=== PATIENT | male | born 1930 | race Caucasian/White ===

== ENCOUNTER 2018-10-10 07:58 | Inpatient (IN) | payer MEDICARE, OTHER ==
[2018-10-10 08:38] LABS: ADD MAN DIFF? NO
[2018-10-10 08:43] LABS: WHITE BLOOD COUNT 6.1 10^3/ul (4.8-10.8)
[2018-10-10 08:43] LABS: BASOPHILS % 0.7 % (0.0-2.0); EOSINOPHILS # 0.4 10^3/ul (0.0-0.5); EOSINOPHILS % 5.9 % (0.0-7.0); HEMATOCRIT 39.8 % (42.0-52.0); HEMOGLOBIN 13.4 g/dl (14.0-18.0); LYMPHOCYTES # 1.4 10^3/ul (0.8-2.9); LYMPHOCYTES % 22.3 % (15.0-51.0); MEAN CORPUSCULAR HGB CONC 33.7 g/dl (32.0-37.0); MEAN CORPUSCULAR VOLUME 86.1 fl (82.0-101.0); MONOCYTE # 0.5 10^3/ul (0.3-0.9); MONOCYTES % 8.5 % (0.0-11.0); NEUTROPHIL # 3.8 10^3/ul (1.6-7.5); NEUTROPHILS % 62.3 % (39.0-77.0); PLATELET COUNT 158 10^3/UL (140-415); RED BLOOD COUNT 4.62 10^6/ul (4.70-6.10); RED CELL DISTRIBUTION WIDTH 13.1 % (11.5-14.5)
[2018-10-10 09:05] LABS: ADD UMIC YES; INR 1.07; PT RATIO 1.1; UR ASCORBIC ACID NEGATIVE (NEGATIVE); UR BILIRUBIN (Dip) NEGATIVE (NEGATIVE); UR BLOOD (Dip) NEGATIVE (NEGATIVE); UR CLARITY CLEAR (CLEAR); UR COLOR STRAW (YELLOW); UR GLUCOSE (Dip) NEGATIVE (NEGATIVE); UR KETONES (Dip) NEGATIVE (NEGATIVE); UR LEUKOCYTE ESTERASE (Dip) NEGATIVE Leu/ul (NEGATIVE); UR NITRITE (Dip) NEGATIVE (NEGATIVE); UR RBC 2 /HPF (0-5); UR TOTAL PROTEIN (Dip) 2+ mg/dl (NEGATIVE); UR UROBILINOGEN (Dip) NEGATIVE (NEGATIVE); UR WBC 0 /HPF (0-5)
[2018-10-10 09:06] LABS: PARTIAL THROMBOPLASTIN TIME 34.3 Sec (23.0-35.0)
[2018-10-10 09:08] LABS: ANION GAP 9 (5-13); BLOOD UREA NITROGEN 28 mg/dl (7-20); CALCIUM 9.5 mg/dl (8.4-10.2); CARBON DIOXIDE 26 mmol/L (21-31); CHLORIDE 105 mmol/L (97-110); CHOL/HDL RATIO 3.9 RATIO; CHOLESTEROL 188 mg/dl (100-200); CREATINE KINASE 114 IU/L (23-200); CREATININE 1.37 mg/dl (0.61-1.24); GLUCOSE 112 mg/dl (70-220); HDL CHOLESTEROL 48 mg/dl (31-75); LDL CHOLESTEROL,CALCULATED 119 mg/dl; POTASSIUM 4.6 mmol/L (3.5-5.1); SODIUM 140 mmol/L (135-144); TRIGLYCERIDES 103 mg/dl (0-149)
[2018-10-10 09:14] LABS: ETHANOL < 10.0 mg/dl
[2018-10-10 09:20] LABS: CK INDEX 2.1; CK-MB 2.36 ng/ml (0.0-2.4); TROPONIN-I < 0.012 ng/ml (0.000-0.120)
[2018-10-10 09:41] LABS: OPIATES Negative (NEGATIVE)
[2018-10-10 09:43] LABS: CANNABINOIDS Negative (NEGATIVE); COCAINE Negative (NEGATIVE)
[2018-10-10] MEDS: ASPIRIN 325 MG TAB PO (09:56)
[2018-10-10] MEDS ORDERED: ACETAMINOPHEN 325 MG TAB PO ×2 (10:00)
[2018-10-10] MEDS ORDERED: NACL 0.9% 3 ML SYG IV (10:00)
[2018-10-10] MEDS ORDERED: ONDANSETRON 4 MG INJ IV (10:00)
[2018-10-10] MEDS: FINASTERIDE 5 MG TAB PO (10:27)
[2018-10-10] MEDS: AMLODIPINE 5 MG TAB PO ×2 (10:35→21:45)
[2018-10-10 10:52] LABS: AMPHETAMINE/METHAMPHETAMINE Negative (NEGATIVE); BARBITURATES Negative (NEGATIVE); BENZODIAZEPINES Negative (NEGATIVE)
[2018-10-10 10:58] LABS: HEMOGLOBIN A1C 5.5 % (0-5.9)
[2018-10-10] MEDS: SOD CHLORIDE 0.9% 1,000 ML IV ×3 (11:39→19:53)
[2018-10-10 11:43] LABS: CREATINE KINASE 96 IU/L (23-200)
[2018-10-10 11:57] LABS: CK INDEX 2.6; CK-MB 2.48 ng/ml (0.0-2.4); TROPONIN-I < 0.012 ng/ml (0.000-0.120)
[2018-10-10] MEDS ORDERED: hydrALAzine 20 MG INJ IV (15:00)
[2018-10-10 16:37] LABS: CREATINE KINASE 112 IU/L (23-200)
[2018-10-10 16:48] LABS: CK INDEX 2.2; CK-MB 2.51 ng/ml (0.0-2.4); TROPONIN-I < 0.012 ng/ml (0.000-0.120)
[2018-10-10] MEDS: ATORVASTATIN 80 MG TAB PO (21:44)
[2018-10-10] MEDS: TAMSULOSIN (SR) 0.4 MG CAP PO (21:44)
[2018-10-10] MEDS: ONDANSETRON 4 MG INJ IV (22:16)
[2018-10-11] MEDS: SOD CHLORIDE 0.9% 1,000 ML IV (04:48)
[2018-10-11 06:05] LABS: ADD MAN DIFF? NO
[2018-10-11 06:12] LABS: WHITE BLOOD COUNT 10.9 10^3/ul (4.8-10.8)
[2018-10-11 06:12] LABS: ABNORMAL IP MESSAGE 1; BASOPHILS % 0.3 % (0.0-2.0); EOSINOPHILS # 0.1 10^3/ul (0.0-0.5); EOSINOPHILS % 0.7 % (0.0-7.0); HEMATOCRIT 37.3 % (42.0-52.0); HEMOGLOBIN 12.4 g/dl (14.0-18.0); LYMPHOCYTES # 0.5 10^3/ul (0.8-2.9); LYMPHOCYTES % 4.1 % (15.0-51.0); MEAN CORPUSCULAR HEMOGLOBIN 29.2 pg (29.0-33.0); MEAN CORPUSCULAR HGB CONC 33.2 g/dl (32.0-37.0); MEAN CORPUSCULAR VOLUME 87.8 fl (82.0-101.0); MEAN PLATELET VOLUME 10.2 fl (7.4-10.4); MONOCYTE # 0.7 10^3/ul (0.3-0.9); MONOCYTES % 6.3 % (0.0-11.0); NEUTROPHIL # 9.7 10^3/ul (1.6-7.5); NEUTROPHILS % 88.2 % (39.0-77.0); PLATELET COUNT 150 10^3/UL (140-415); POSITIVE DIFF @See below; RED BLOOD COUNT 4.25 10^6/ul (4.70-6.10); RED CELL DISTRIBUTION WIDTH 13.1 % (11.5-14.5)
[2018-10-11 06:24] LABS: HEMOGLOBIN A1C 5.5 % (0-5.9)
[2018-10-11 07:09] LABS: ALANINE AMINOTRANSFERASE 39 IU/L (13-69); ALBUMIN/GLOBULIN RATIO 1.21; ALKALINE PHOSPHATASE 71 IU/L (42-121); ANION GAP 7 (5-13); ASPARTATE AMINO TRANSFERASE 43 IU/L (15-46); BILIRUBIN,INDIRECT 0.8 mg/dl (0-1.1); BILIRUBIN,TOTAL 0.8 mg/dl (0.2-1.3); BLOOD UREA NITROGEN 31 mg/dl (7-20); CALCIUM 8.9 mg/dl (8.4-10.2); CARBON DIOXIDE 26 mmol/L (21-31); CHLORIDE 106 mmol/L (97-110); CHOL/HDL RATIO 3.7 RATIO; CHOLESTEROL 155 mg/dl (100-200); CREATININE 1.43 mg/dl (0.61-1.24); GLUCOSE 120 mg/dl (70-220); HDL CHOLESTEROL 41 mg/dl (31-75); LDL CHOLESTEROL,CALCULATED 103 mg/dl; MAGNESIUM 2.1 mg/dl (1.7-2.5); PHOSPHORUS 3.6 mg/dl (2.5-4.9); POTASSIUM 5.7 mmol/L (3.5-5.1); SODIUM 139 mmol/L (135-144); TOTAL PROTEIN 7.3 g/dl (6.1-8.1); TRIGLYCERIDES 56 mg/dl (0-149)
[2018-10-11] MEDS: ASPIRIN 81 MG TAB PO (08:20)
[2018-10-11] MEDS: FINASTERIDE 5 MG TAB PO (08:20)
[2018-10-11] MEDS: AMLODIPINE 5 MG TAB PO ×2 (08:21→20:17)
[2018-10-11] MEDS: METOPROLOL (XL) 25 MG TAB PO (11:26)
[2018-10-11 15:14] LABS: RAPID PLASMA REAGIN NONREACTIVE (NR)
[2018-10-11] MEDS: TAMSULOSIN (SR) 0.4 MG CAP PO (20:16)
[2018-10-11] MEDS: ATORVASTATIN 80 MG TAB PO (20:17)
[2018-10-12] MEDS: SOD CHLORIDE 0.9% 1,000 ML IV ×3 (01:40→21:07)
[2018-10-12] MEDS: FINASTERIDE 5 MG TAB PO (08:41)
[2018-10-12] MEDS: AMLODIPINE 5 MG TAB PO ×2 (08:41→21:06)
[2018-10-12] MEDS: ASPIRIN 81 MG TAB PO (08:41)
[2018-10-12] MEDS: METOPROLOL (XL) 25 MG TAB PO (08:41)
[2018-10-12] MEDS: MAGNESIUM HYDROXIDE 30ML CUP PO (13:39)
[2018-10-12] MEDS: LACTULOSE 30ML CUP PO (13:40)
[2018-10-12] MEDS: TAMSULOSIN (SR) 0.4 MG CAP PO (21:06)
[2018-10-12] MEDS: ATORVASTATIN 80 MG TAB PO (21:06)
[2018-10-12] MEDS: DOCUSATE SODIUM 100 MG CAP PO (21:06)
[2018-10-13 08:46] LABS: ADD MAN DIFF? NO
[2018-10-13 08:48] LABS: WHITE BLOOD COUNT 7.6 10^3/ul (4.8-10.8)
[2018-10-13 08:48] LABS: BASOPHILS % 0.4 % (0.0-2.0); EOSINOPHILS # 0.4 10^3/ul (0.0-0.5); EOSINOPHILS % 4.6 % (0.0-7.0); LYMPHOCYTES # 1.3 10^3/ul (0.8-2.9); LYMPHOCYTES % 17.1 % (15.0-51.0); MEAN CORPUSCULAR HEMOGLOBIN 29.1 pg (29.0-33.0); MEAN CORPUSCULAR HGB CONC 33.3 g/dl (32.0-37.0); MEAN CORPUSCULAR VOLUME 87.2 fl (82.0-101.0); MEAN PLATELET VOLUME 9.8 fl (7.4-10.4); MONOCYTE # 0.6 10^3/ul (0.3-0.9); MONOCYTES % 8.2 % (0.0-11.0); NEUTROPHIL # 5.3 10^3/ul (1.6-7.5); NEUTROPHILS % 69.4 % (39.0-77.0); PLATELET COUNT 151 10^3/UL (140-415); RED BLOOD COUNT 4.47 10^6/ul (4.70-6.10)
[2018-10-13 09:16] LABS: ANION GAP 8 (5-13); BLOOD UREA NITROGEN 18 mg/dl (7-20); CARBON DIOXIDE 26 mmol/L (21-31); CHLORIDE 106 mmol/L (97-110); CREATININE 1.31 mg/dl (0.61-1.24); GLUCOSE 109 mg/dl (70-220); POTASSIUM 4.7 mmol/L (3.5-5.1); SODIUM 140 mmol/L (135-144)
[2018-10-13] MEDS: AMLODIPINE 5 MG TAB PO ×2 (09:49→20:58)
[2018-10-13] MEDS: FINASTERIDE 5 MG TAB PO (09:50)
[2018-10-13] MEDS: ASPIRIN 81 MG TAB PO (09:50)
[2018-10-13] MEDS: METOPROLOL (XL) 25 MG TAB PO (09:50)
[2018-10-13] MEDS: DOCUSATE SODIUM 100 MG CAP PO ×2 (09:50→20:57)
[2018-10-13] MEDS ORDERED: SOD CHLORIDE 0.9% 1,000 ML IV (10:00)
[2018-10-13] MEDS: SOD CHLORIDE 0.9% 500 ML IV (11:35)
[2018-10-13] MEDS: SOD CHLORIDE 0.9% 100 ML (11:38)
[2018-10-13] MEDS: IOHEXOL 100 ML (11:38)
[2018-10-13] MEDS: CLOPIDOGREL 75 MG TAB PO (11:47)
[2018-10-13] MEDS: SOD CHLORIDE 0.9% 1,000 ML IV ×3 (11:48→18:06)
[2018-10-13] MEDS: ACETYLCYSTEINE 600 MG CAP PO ×2 (14:17→20:58)
[2018-10-13] MEDS: TAMSULOSIN (SR) 0.4 MG CAP PO (20:57)
[2018-10-13] MEDS: ATORVASTATIN 80 MG TAB PO (20:57)
[2018-10-14] MEDS: SOD CHLORIDE 0.9% 1,000 ML IV ×3 (02:41→18:00)
[2018-10-14 07:49] LABS: ANION GAP 9 (5-13); BLOOD UREA NITROGEN 20 mg/dl (7-20); CALCIUM 8.7 mg/dl (8.4-10.2); CARBON DIOXIDE 24 mmol/L (21-31); CHLORIDE 107 mmol/L (97-110); CREATININE 1.29 mg/dl (0.61-1.24); GLUCOSE 101 mg/dl (70-220); POTASSIUM 4.7 mmol/L (3.5-5.1); SODIUM 140 mmol/L (135-144)
[2018-10-14] MEDS: AMLODIPINE 5 MG TAB PO ×2 (09:17→20:20)
[2018-10-14] MEDS: CLOPIDOGREL 75 MG TAB PO (09:17)
[2018-10-14] MEDS: METOPROLOL (XL) 25 MG TAB PO (09:17)
[2018-10-14] MEDS: ASPIRIN 81 MG TAB PO (09:18)
[2018-10-14] MEDS: ACETYLCYSTEINE 600 MG CAP PO ×2 (09:18→20:19)
[2018-10-14] MEDS: DOCUSATE SODIUM 100 MG CAP PO ×2 (09:18→20:19)
[2018-10-14] MEDS: FINASTERIDE 5 MG TAB PO (09:18)
[2018-10-14] MEDS: TAMSULOSIN (SR) 0.4 MG CAP PO (20:19)
[2018-10-14] MEDS: ATORVASTATIN 80 MG TAB PO (20:20)
[2018-10-15] MEDS: SOD CHLORIDE 0.9% 1,000 ML IV ×3 (03:09→17:29)
[2018-10-15] MEDS: FINASTERIDE 5 MG TAB PO (08:45)
[2018-10-15] MEDS: ASPIRIN 81 MG TAB PO (08:45)
[2018-10-15] MEDS: ACETYLCYSTEINE 600 MG CAP PO ×2 (08:45→20:01)
[2018-10-15] MEDS: METOPROLOL (XL) 25 MG TAB PO (08:45)
[2018-10-15] MEDS: CLOPIDOGREL 75 MG TAB PO (08:46)
[2018-10-15] MEDS: AMLODIPINE 5 MG TAB PO ×2 (08:46→20:01)
[2018-10-15] MEDS: DOCUSATE SODIUM 100 MG CAP PO ×2 (08:46→20:02)
[2018-10-15] MEDS: SENNA TAB PO ×2 (10:12→20:03)
[2018-10-15] MEDS: POLYETHYLENE GLYCOL 17 GM PACKET PO (10:12)
[2018-10-15] MEDS ORDERED: DOCUSATE SODIUM 100 MG CAP PO (19:54)
[2018-10-15] MEDS: TAMSULOSIN (SR) 0.4 MG CAP PO (20:01)
[2018-10-15] MEDS: ATORVASTATIN 80 MG TAB PO (20:02)
[2018-10-16] MEDS: SOD CHLORIDE 0.9% 1,000 ML IV ×3 (02:00→22:14)
[2018-10-16 05:23] LABS: ADD MAN DIFF? NO
[2018-10-16 05:27] LABS: BASOPHILS % 0.6 % (0.0-2.0); EOSINOPHILS # 0.7 10^3/ul (0.0-0.5); EOSINOPHILS % 9.1 % (0.0-7.0); HEMATOCRIT 35.5 % (42.0-52.0); HEMOGLOBIN 11.7 g/dl (14.0-18.0); LYMPHOCYTES # 1.6 10^3/ul (0.8-2.9); MEAN CORPUSCULAR HEMOGLOBIN 28.6 pg (29.0-33.0); MEAN CORPUSCULAR VOLUME 86.8 fl (82.0-101.0); MEAN PLATELET VOLUME 9.5 fl (7.4-10.4); MONOCYTE # 0.7 10^3/ul (0.3-0.9); MONOCYTES % 9.4 % (0.0-11.0); NEUTROPHIL # 4.2 10^3/ul (1.6-7.5); NEUTROPHILS % 58.2 % (39.0-77.0); PLATELET COUNT 142 10^3/UL (140-415); RED BLOOD COUNT 4.09 10^6/ul (4.70-6.10); RED CELL DISTRIBUTION WIDTH 13.2 % (11.5-14.5)
[2018-10-16 05:27] LABS: WHITE BLOOD COUNT 7.2 10^3/ul (4.8-10.8)
[2018-10-16 05:48] LABS: ANION GAP 7 (5-13); BLOOD UREA NITROGEN 21 mg/dl (7-20); CALCIUM 8.7 mg/dl (8.4-10.2); CARBON DIOXIDE 26 mmol/L (21-31); CHLORIDE 108 mmol/L (97-110); CREATININE 1.46 mg/dl (0.61-1.24); GLUCOSE 94 mg/dl (70-220); MAGNESIUM 1.9 mg/dl (1.7-2.5); POTASSIUM 4.7 mmol/L (3.5-5.1); SODIUM 141 mmol/L (135-144)
[2018-10-16] MEDS ORDERED: LIDOCAINE 1% (STERILE-PAK) 30 ML INJ (06:40)
[2018-10-16] MEDS ORDERED: GELATIN SIZE 100 SPONGE (06:40)
[2018-10-16] MEDS ORDERED: HEPARIN 1000 UNITS/ML 10 ML INJ (06:41)
[2018-10-16] MEDS ORDERED: THROMBIN 5000 UNIT VIAL (06:41)
[2018-10-16] MEDS: LIDOCAINE 1% (MPF) 30 ML INJ INJ (07:15)
[2018-10-16] MEDS: THROMBIN 5000 UNIT VIAL TOP (07:15)
[2018-10-16] MEDS: GELATIN SIZE 100 SPONGE TOP (07:15)
[2018-10-16] MEDS ORDERED: MIDAZOLAM 1 MG/ML 2 ML INJ (07:41)
[2018-10-16] MEDS ORDERED: PHENYLephrine (100 MCG/ML) 5ML SYG (08:49)
[2018-10-16] MEDS: POLYETHYLENE GLYCOL 17 GM PACKET PO (09:00)
[2018-10-16] MEDS: DOCUSATE SODIUM 100 MG CAP PO ×2 (09:00→20:28)
[2018-10-16] MEDS ORDERED: ONDANSETRON 4 MG INJ (09:29)
[2018-10-16] MEDS ORDERED: GLYCOPYRROLATE 0.4 MG INJ (09:31)
[2018-10-16] MEDS ORDERED: CEFAZOLIN 1 GM INJ (09:31)
[2018-10-16] MEDS ORDERED: ROCURONIUM 50 MG INJ (09:31)
[2018-10-16] MEDS ORDERED: LIDOCAINE 2% (SDV) 5 ML INJ (09:31)
[2018-10-16] MEDS ORDERED: NEOSTIGMINE 3 MG/3 ML SYRINGE (09:31)
[2018-10-16] MEDS ORDERED: ETOMIDATE 20 MG INJ (09:31)
[2018-10-16] MEDS ORDERED: FENTAnyl 50 MCG/ML VIAL IV (10:00)
[2018-10-16] MEDS ORDERED: hydrALAzine 20 MG INJ IV (10:00)
[2018-10-16] MEDS ORDERED: MEPERIDINE 25 MG INJ IV (10:00)
[2018-10-16] MEDS ORDERED: HYDROmorphONE 1 MG/5 ML IV SYRINGE IV ×2 (10:00)
[2018-10-16] MEDS ORDERED: DIPHENHYDRAMINE 50 MG INJ IV (10:00)
[2018-10-16] MEDS ORDERED: ONDANSETRON 4 MG INJ IV (10:00)
[2018-10-16] MEDS ORDERED: LABETALOL HCL 20MG INJ IV (10:00)
[2018-10-16] MEDS: niCARdipine 50 MG in SOD CHLORIDE 0.9% 480 ML IV ×2 (10:50→21:42)
[2018-10-16] MEDS: AMLODIPINE 5 MG TAB PO ×2 (11:20→20:30)
[2018-10-16] MEDS: SENNA TAB PO ×2 (11:20→20:28)
[2018-10-16] MEDS: CLOPIDOGREL 75 MG TAB PO (11:20)
[2018-10-16] MEDS: FINASTERIDE 5 MG TAB PO (11:20)
[2018-10-16] MEDS: ACETYLCYSTEINE 600 MG CAP PO (11:25)
[2018-10-16] MEDS: METOPROLOL (XL) 25 MG TAB PO (11:25)
[2018-10-16] MEDS: ASPIRIN 81 MG TAB PO ×2 (11:25→11:40)
[2018-10-16] MEDS: morphine 2 MG INJ IV (13:20)
[2018-10-16] MEDS: HYDROCODONE/APAP (5/325) TAB PO (15:24)
[2018-10-16] MEDS ORDERED: niCARdipine-NS 0.1MG/ML DRIP 200 ML (18:00)
[2018-10-16] MEDS: ATORVASTATIN 80 MG TAB PO (20:27)
[2018-10-16] MEDS: TAMSULOSIN (SR) 0.4 MG CAP PO (20:28)
[2018-10-17 05:05] LABS: ADD MAN DIFF? NO
[2018-10-17 05:13] LABS: WHITE BLOOD COUNT 8.4 10^3/ul (4.8-10.8)
[2018-10-17 05:13] LABS: BASOPHILS % 0.4 % (0.0-2.0); EOSINOPHILS # 0.2 10^3/ul (0.0-0.5); EOSINOPHILS % 1.9 % (0.0-7.0); HEMATOCRIT 33.6 % (42.0-52.0); HEMOGLOBIN 11.3 g/dl (14.0-18.0); LYMPHOCYTES # 0.8 10^3/ul (0.8-2.9); LYMPHOCYTES % 9.3 % (15.0-51.0); MEAN CORPUSCULAR HGB CONC 33.6 g/dl (32.0-37.0); MEAN CORPUSCULAR VOLUME 86.2 fl (82.0-101.0); MEAN PLATELET VOLUME 9.9 fl (7.4-10.4); MONOCYTE # 0.9 10^3/ul (0.3-0.9); MONOCYTES % 10.2 % (0.0-11.0); NEUTROPHIL # 6.6 10^3/ul (1.6-7.5); NEUTROPHILS % 77.8 % (39.0-77.0); PLATELET COUNT 145 10^3/UL (140-415)
[2018-10-17 05:26] LABS: ANION GAP 7 (5-13); BLOOD UREA NITROGEN 18 mg/dl (7-20); CALCIUM 8.2 mg/dl (8.4-10.2); CARBON DIOXIDE 23 mmol/L (21-31); CHLORIDE 108 mmol/L (97-110); GLUCOSE 131 mg/dl (70-220); MAGNESIUM 1.7 mg/dl (1.7-2.5); POTASSIUM 4.5 mmol/L (3.5-5.1); SODIUM 138 mmol/L (135-144)
[2018-10-17 06:28] LABS: ADD UMIC NO; UR ASCORBIC ACID NEGATIVE (NEGATIVE); UR BILIRUBIN (Dip) NEGATIVE (NEGATIVE); UR BLOOD (Dip) NEGATIVE (NEGATIVE); UR CLARITY CLEAR (CLEAR); UR COLOR YELLOW (YELLOW); UR GLUCOSE (Dip) NEGATIVE (NEGATIVE); UR KETONES (Dip) NEGATIVE (NEGATIVE); UR LEUKOCYTE ESTERASE (Dip) NEGATIVE Leu/ul (NEGATIVE); UR MUCUS FEW /HPF (NONE SEEN); UR NITRITE (Dip) NEGATIVE (NEGATIVE); UR RBC 1 /HPF (0-5); UR SPECIFIC GRAVITY (Dip) 1.012 (1.003-1.030); UR TOTAL PROTEIN (Dip) NEGATIVE (NEGATIVE); UR UROBILINOGEN (Dip) NEGATIVE (NEGATIVE); UR WBC 0 /HPF (0-5)
[2018-10-17] MEDS: ASPIRIN 81 MG TAB PO (08:41)
[2018-10-17] MEDS: CLOPIDOGREL 75 MG TAB PO (08:41)
[2018-10-17] MEDS: DOCUSATE SODIUM 100 MG CAP PO ×2 (08:41→21:06)
[2018-10-17] MEDS: POLYETHYLENE GLYCOL 17 GM PACKET PO (08:41)
[2018-10-17] MEDS: METOPROLOL (XL) 25 MG TAB PO (08:42)
[2018-10-17] MEDS: SENNA TAB PO ×2 (08:42→21:05)
[2018-10-17] MEDS: AMLODIPINE 5 MG TAB PO ×2 (08:42→21:06)
[2018-10-17] MEDS: FINASTERIDE 5 MG TAB PO (08:42)
[2018-10-17] MEDS: SOD CHLORIDE 0.9% 1,000 ML IV (08:43)
[2018-10-17] MEDS ORDERED: SOD CHLORIDE 0.9% 500 ML IV (09:30)
[2018-10-17] MEDS: BETHANECHOL 10 MG TAB PO ×3 (09:47→21:06)
[2018-10-17] MEDS: ATORVASTATIN 80 MG TAB PO (21:05)
[2018-10-17] MEDS: TAMSULOSIN (SR) 0.4 MG CAP PO (21:05)
[2018-10-18 06:10] LABS: ADD MAN DIFF? NO
[2018-10-18 06:22] LABS: BASOPHILS % 0.4 % (0.0-2.0); EOSINOPHILS # 0.5 10^3/ul (0.0-0.5); EOSINOPHILS % 4.4 % (0.0-7.0); HEMATOCRIT 34.1 % (42.0-52.0); HEMOGLOBIN 11.4 g/dl (14.0-18.0); LYMPHOCYTES # 1.1 10^3/ul (0.8-2.9); LYMPHOCYTES % 10.8 % (15.0-51.0); MEAN CORPUSCULAR HEMOGLOBIN 28.7 pg (29.0-33.0); MEAN CORPUSCULAR HGB CONC 33.4 g/dl (32.0-37.0); MEAN CORPUSCULAR VOLUME 85.9 fl (82.0-101.0); MEAN PLATELET VOLUME 10.3 fl (7.4-10.4); MONOCYTES % 9.8 % (0.0-11.0); NEUTROPHIL # 7.8 10^3/ul (1.6-7.5); NEUTROPHILS % 74.1 % (39.0-77.0); PLATELET COUNT 147 10^3/UL (140-415); RED BLOOD COUNT 3.97 10^6/ul (4.70-6.10); RED CELL DISTRIBUTION WIDTH 13.2 % (11.5-14.5)
[2018-10-18 06:22] LABS: WHITE BLOOD COUNT 10.5 10^3/ul (4.8-10.8)
[2018-10-18 06:49] LABS: ANION GAP 7 (5-13); BLOOD UREA NITROGEN 20 mg/dl (7-20); CALCIUM 8.8 mg/dl (8.4-10.2); CARBON DIOXIDE 26 mmol/L (21-31); CHLORIDE 104 mmol/L (97-110); CREATININE 1.22 mg/dl (0.61-1.24); GLUCOSE 114 mg/dl (70-220); POTASSIUM 4.4 mmol/L (3.5-5.1); SODIUM 137 mmol/L (135-144)
[2018-10-18] MEDS: DOCUSATE SODIUM 100 MG CAP PO ×2 (08:00→20:38)
[2018-10-18] MEDS: BETHANECHOL 10 MG TAB PO ×3 (08:01→20:38)
[2018-10-18] MEDS: POLYETHYLENE GLYCOL 17 GM PACKET PO (08:01)
[2018-10-18] MEDS: SENNA TAB PO ×2 (08:01→20:38)
[2018-10-18] MEDS: AMLODIPINE 5 MG TAB PO ×2 (08:01→20:39)
[2018-10-18] MEDS: METOPROLOL (XL) 25 MG TAB PO (08:01)
[2018-10-18] MEDS: FINASTERIDE 5 MG TAB PO (08:01)
[2018-10-18] MEDS: NA PHOSPHATE/BIPHOS 133 ML ENEMA PR ×2 (11:30→12:06)
[2018-10-18] MEDS: ATORVASTATIN 80 MG TAB PO (20:38)
[2018-10-18] MEDS: TAMSULOSIN (SR) 0.4 MG CAP PO (20:38)
[2018-10-19] MEDS: SENNA TAB PO ×2 (08:25→20:37)
[2018-10-19] MEDS: ASPIRIN 81 MG TAB PO (08:25)
[2018-10-19] MEDS: FINASTERIDE 5 MG TAB PO (08:25)
[2018-10-19] MEDS: METOPROLOL (XL) 25 MG TAB PO (08:26)
[2018-10-19] MEDS: CLOPIDOGREL 75 MG TAB PO (08:26)
[2018-10-19] MEDS: BETHANECHOL 10 MG TAB PO (08:26)
[2018-10-19] MEDS: DOCUSATE SODIUM 100 MG CAP PO ×2 (08:26→20:36)
[2018-10-19] MEDS: AMLODIPINE 5 MG TAB PO ×2 (08:26→20:40)
[2018-10-19] MEDS: POLYETHYLENE GLYCOL 17 GM PACKET PO (08:26)
[2018-10-19] MEDS ORDERED: morphine LIQ (10 MG/5 ML) CUP PO (15:39)
[2018-10-19] MEDS: TAMSULOSIN (SR) 0.4 MG CAP PO (20:37)
[2018-10-19] MEDS: ATORVASTATIN 80 MG TAB PO (20:37)
[2018-10-20 05:38] LABS: ADD MAN DIFF? NO
[2018-10-20 05:47] LABS: BASOPHILS % 0.4 % (0.0-2.0); EOSINOPHILS # 0.9 10^3/ul (0.0-0.5); EOSINOPHILS % 10.2 % (0.0-7.0); HEMATOCRIT 34.6 % (42.0-52.0); HEMOGLOBIN 11.6 g/dl (14.0-18.0); LYMPHOCYTES # 1.4 10^3/ul (0.8-2.9); LYMPHOCYTES % 15.7 % (15.0-51.0); MEAN CORPUSCULAR HGB CONC 33.5 g/dl (32.0-37.0); MEAN CORPUSCULAR VOLUME 86.5 fl (82.0-101.0); MEAN PLATELET VOLUME 10.1 fl (7.4-10.4); MONOCYTES % 10.9 % (0.0-11.0); NEUTROPHIL # 5.5 10^3/ul (1.6-7.5); NEUTROPHILS % 62.2 % (39.0-77.0); PLATELET COUNT 191 10^3/UL (140-415); RED CELL DISTRIBUTION WIDTH 13.2 % (11.5-14.5)
[2018-10-20 05:47] LABS: WHITE BLOOD COUNT 8.9 10^3/ul (4.8-10.8)
[2018-10-20 07:06] LABS: ANION GAP 8 (5-13); BLOOD UREA NITROGEN 28 mg/dl (7-20); CARBON DIOXIDE 28 mmol/L (21-31); CHLORIDE 102 mmol/L (97-110); CREATININE 1.39 mg/dl (0.61-1.24); GLUCOSE 113 mg/dl (70-220); POTASSIUM 4.5 mmol/L (3.5-5.1); SODIUM 138 mmol/L (135-144)
[2018-10-20] MEDS: DOCUSATE SODIUM 100 MG CAP PO (08:51)
[2018-10-20] MEDS: CLOPIDOGREL 75 MG TAB PO (08:51)
[2018-10-20] MEDS: FINASTERIDE 5 MG TAB PO (08:51)
[2018-10-20] MEDS: POLYETHYLENE GLYCOL 17 GM PACKET PO (08:51)
[2018-10-20] MEDS: SENNA TAB PO (08:51)
[2018-10-20] MEDS: ASPIRIN 81 MG TAB PO (08:51)
[2018-10-20] MEDS: METOPROLOL (XL) 25 MG TAB PO (08:52)
[2018-10-20] MEDS: AMLODIPINE 5 MG TAB PO (08:52)
[2018-10-20] MEDS: METOPROLOL 25 MG TAB PO (10:17)
[2018-10-20] MEDS: SOD CHLORIDE 0.9% 500 ML IV (12:21)
[2018-10-21] MEDS ORDERED: METOPROLOL (XL) 25 MG TAB PO (09:00)
== END 2018-10-20 15:18 | DRG 38 ==
LOC: 6WM 10-12 08:20 → TEL 10-17 12:53 → E/R 07:58 → ICU 10-16 10:15 → 6WM 09:40
PROC: 03CK0Z6 (ICD-10-PCS; principal; 2018-10-16 07:30)
PROC: 03CH0ZZ Extirpation of Matter from Right Common Carotid Artery, Open Approach (ICD-10-PCS; 2018-10-16 07:30)
PROC: 03CM0ZZ Extirpation of Matter from Right External Carotid Artery, Open Approach (ICD-10-PCS; 2018-10-16 07:30)
DX: I63.233 Cerebral infarction due to unspecified occlusion or stenosis of bilateral carotid arteries (principal); N17.9 Acute kidney failure, unspecified; Q21.1 Atrial septal defect; I13.0 Hypertensive heart and chronic kidney disease with heart failure and stage 1 through stage 4 chronic kidney disease, or unspecified chronic kidney disease; I50.32 Chronic diastolic (congestive) heart failure; E86.0 Dehydration; N18.3 Chronic kidney disease, stage 3 (moderate); N40.0 Benign prostatic hyperplasia without lower urinary tract symptoms; I25.10 Atherosclerotic heart disease of native coronary artery without angina pectoris; R53.1 Weakness; K59.00 Constipation, unspecified; Z79.02 Long term (current) use of antithrombotics/antiplatelets; Z79.82 Long term (current) use of aspirin
CPT/HCPCS: 36415; 70450; 70496; 70498; 70551; 71045; 80048; 80053; 80061; 80307; 81001; 81003; 82550; 82553; 82962; 83036; 83735; 84100; 84443; 84484; 85025; 85610; 85730; 86592; 87081; 87086; 88304; 90686; 92526; 92610; 93005; 93306; 93880; 97110; 97116; 97162; 97164; 97166; 97530; 99285-25

== ENCOUNTER 2018-10-20 15:30 | Inpatient (IN) | payer MEDICARE, OTHER ==
[2018-10-20] MEDS ORDERED: LACTULOSE 30ML CUP PO (16:30)
[2018-10-20] MEDS ORDERED: BISACODYL 10 MG SUPP PR (16:30)
[2018-10-20] MEDS ORDERED: ONDANSETRON 4 MG INJ IV (16:30)
[2018-10-20 16:56] LABS: ADD UMIC YES; UR ASCORBIC ACID NEGATIVE (NEGATIVE); UR BILIRUBIN (Dip) NEGATIVE (NEGATIVE); UR BLOOD (Dip) 2+ mg/dL (NEGATIVE); UR CLARITY CLEAR (CLEAR); UR COLOR STRAW (YELLOW); UR GLUCOSE (Dip) NEGATIVE (NEGATIVE); UR KETONES (Dip) NEGATIVE (NEGATIVE); UR LEUKOCYTE ESTERASE (Dip) NEGATIVE Leu/ul (NEGATIVE); UR NITRITE (Dip) NEGATIVE (NEGATIVE); UR RBC 1 /HPF (0-5); UR SPECIFIC GRAVITY (Dip) 1.003 (1.003-1.030); UR TOTAL PROTEIN (Dip) NEGATIVE (NEGATIVE); UR UROBILINOGEN (Dip) NEGATIVE (NEGATIVE); UR WBC 1 /HPF (0-5)
[2018-10-20] MEDS: BETHANECHOL 10 MG TAB PO (20:47)
[2018-10-20] MEDS: TAMSULOSIN (SR) 0.4 MG CAP PO (20:47)
[2018-10-20] MEDS: SENNA TAB PO (20:47)
[2018-10-20] MEDS: DOCUSATE SODIUM 100 MG CAP PO (20:47)
[2018-10-20] MEDS: ATORVASTATIN 80 MG TAB PO (20:47)
[2018-10-20] MEDS: AMLODIPINE 5 MG TAB PO (20:48)
[2018-10-20] MEDS ORDERED: DOCUSATE SODIUM 100 MG CAP PO (21:00)
[2018-10-20 21:42] LABS: SODIUM,URINE RANDOM 23 mmol/L (30-90)
[2018-10-21] MEDS: AMLODIPINE 5 MG TAB PO ×2 (08:21→21:55)
[2018-10-21] MEDS: ASPIRIN (EC) 81 MG TAB PO (08:21)
[2018-10-21] MEDS: METOPROLOL (XL) 50 MG TAB PO (08:21)
[2018-10-21] MEDS: CLOPIDOGREL 75 MG TAB PO (08:21)
[2018-10-21] MEDS: BETHANECHOL 10 MG TAB PO ×3 (08:21→21:55)
[2018-10-21] MEDS: DOCUSATE SODIUM 100 MG CAP PO ×2 (08:21→21:55)
[2018-10-21] MEDS: FINASTERIDE 5 MG TAB PO (08:21)
[2018-10-21] MEDS: POLYETHYLENE GLYCOL 17 GM PACKET PO (08:22)
[2018-10-21 08:28] LABS: ADD MAN DIFF? NO
[2018-10-21 08:33] LABS: WHITE BLOOD COUNT 9.1 10^3/ul (4.8-10.8)
[2018-10-21 08:33] LABS: BASOPHIL # 0.1 10^3/ul (0.0-0.1); BASOPHILS % 0.6 % (0.0-2.0); EOSINOPHILS # 0.9 10^3/ul (0.0-0.5); EOSINOPHILS % 9.6 % (0.0-7.0); HEMATOCRIT 38.1 % (42.0-52.0); HEMOGLOBIN 12.7 g/dl (14.0-18.0); LYMPHOCYTES # 1.4 10^3/ul (0.8-2.9); LYMPHOCYTES % 15.2 % (15.0-51.0); MEAN CORPUSCULAR HEMOGLOBIN 28.9 pg (29.0-33.0); MEAN CORPUSCULAR HGB CONC 33.3 g/dl (32.0-37.0); MEAN CORPUSCULAR VOLUME 86.6 fl (82.0-101.0); MONOCYTE # 0.9 10^3/ul (0.3-0.9); MONOCYTES % 9.7 % (0.0-11.0); NEUTROPHIL # 5.9 10^3/ul (1.6-7.5); NEUTROPHILS % 64.3 % (39.0-77.0); PLATELET COUNT 217 10^3/UL (140-415)
[2018-10-21 09:09] LABS: ALANINE AMINOTRANSFERASE 19 IU/L (13-69); ALBUMIN 4.2 g/dl (3.3-4.9); ALBUMIN/GLOBULIN RATIO 1.35; ALKALINE PHOSPHATASE 84 IU/L (42-121); ANION GAP 12 (5-13); ASPARTATE AMINO TRANSFERASE 26 IU/L (15-46); BILIRUBIN,INDIRECT 0.8 mg/dl (0-1.1); BILIRUBIN,TOTAL 0.8 mg/dl (0.2-1.3); BLOOD UREA NITROGEN 24 mg/dl (7-20); CALCIUM 9.2 mg/dl (8.4-10.2); CARBON DIOXIDE 26 mmol/L (21-31); CHLORIDE 102 mmol/L (97-110); CREATININE 1.23 mg/dl (0.61-1.24); GLUCOSE 103 mg/dl (70-220); POTASSIUM 4.5 mmol/L (3.5-5.1); SODIUM 140 mmol/L (135-144); TOTAL PROTEIN 7.3 g/dl (6.1-8.1)
[2018-10-21 09:20] LABS: PHOSPHORUS 3.9 mg/dl (2.5-4.9)
[2018-10-21 09:20] LABS: MAGNESIUM 2.1 mg/dl (1.7-2.5)
[2018-10-21] MEDS: TAMSULOSIN (SR) 0.4 MG CAP PO (21:54)
[2018-10-21] MEDS: SENNA TAB PO (21:54)
[2018-10-21] MEDS: ATORVASTATIN 80 MG TAB PO (21:55)
[2018-10-22] MEDS: CLOPIDOGREL 75 MG TAB PO (09:43)
[2018-10-22] MEDS: SENNA TAB PO (09:44)
[2018-10-22] MEDS: POLYETHYLENE GLYCOL 17 GM PACKET PO (09:44)
[2018-10-22] MEDS: FINASTERIDE 5 MG TAB PO (09:44)
[2018-10-22] MEDS: AMLODIPINE 5 MG TAB PO ×2 (09:44→20:33)
[2018-10-22] MEDS: BETHANECHOL 10 MG TAB PO ×3 (09:45→20:33)
[2018-10-22] MEDS: DOCUSATE SODIUM 100 MG CAP PO ×2 (09:45→20:33)
[2018-10-22] MEDS: ASPIRIN (EC) 81 MG TAB PO (09:45)
[2018-10-22] MEDS: METOPROLOL (XL) 50 MG TAB PO (09:45)
[2018-10-22] MEDS: CIPROFLOXACIN 500 MG TAB PO (12:30)
[2018-10-22 15:32] LABS: CREATININE, RANDOM URINE 17 mg/dL (20-320); MICROALBUMIN 0.5 mg/dL; MICROALBUMIN/CREATININE RATIO 29 (<30)
[2018-10-22 15:50] LABS: ADD UMIC YES; UR ASCORBIC ACID NEGATIVE (NEGATIVE); UR BILIRUBIN (Dip) NEGATIVE (NEGATIVE); UR BLOOD (Dip) 1+ mg/dL (NEGATIVE); UR CLARITY CLEAR (CLEAR); UR COLOR YELLOW (YELLOW); UR GLUCOSE (Dip) NEGATIVE (NEGATIVE); UR KETONES (Dip) NEGATIVE (NEGATIVE); UR LEUKOCYTE ESTERASE (Dip) NEGATIVE Leu/ul (NEGATIVE); UR MUCUS FEW /HPF (NONE SEEN); UR NITRITE (Dip) NEGATIVE (NEGATIVE); UR RBC 2 /HPF (0-5); UR SPECIFIC GRAVITY (Dip) 1.015 (1.003-1.030); UR TOTAL PROTEIN (Dip) NEGATIVE (NEGATIVE); UR UROBILINOGEN (Dip) 1+ mg/dL (NEGATIVE); UR WBC 1 /HPF (0-5)
[2018-10-22] MEDS: ATORVASTATIN 80 MG TAB PO (20:33)
[2018-10-22] MEDS: TAMSULOSIN (SR) 0.4 MG CAP PO (20:34)
[2018-10-23] MEDS: FINASTERIDE 5 MG TAB PO (08:37)
[2018-10-23] MEDS: POLYETHYLENE GLYCOL 17 GM PACKET PO (08:37)
[2018-10-23] MEDS: METOPROLOL (XL) 50 MG TAB PO (08:38)
[2018-10-23] MEDS: CLOPIDOGREL 75 MG TAB PO (08:38)
[2018-10-23] MEDS: ASPIRIN (EC) 81 MG TAB PO (08:38)
[2018-10-23] MEDS: SENNA TAB PO (08:38)
[2018-10-23] MEDS: DOCUSATE SODIUM 100 MG CAP PO ×2 (08:38→20:19)
[2018-10-23] MEDS: AMLODIPINE 5 MG TAB PO ×2 (08:38→20:19)
[2018-10-23] MEDS: BETHANECHOL 10 MG TAB PO ×3 (08:38→20:19)
[2018-10-23] MEDS: TAMSULOSIN (SR) 0.4 MG CAP PO (20:19)
[2018-10-23] MEDS: ATORVASTATIN 80 MG TAB PO (20:19)
[2018-10-24 07:36] LABS: ANION GAP 11 (5-13); BLOOD UREA NITROGEN 32 mg/dl (7-20); CALCIUM 9.1 mg/dl (8.4-10.2); CARBON DIOXIDE 30 mmol/L (21-31); CHLORIDE 101 mmol/L (97-110); CREATININE 1.37 mg/dl (0.61-1.24); GLUCOSE 106 mg/dl (70-220); MAGNESIUM 2.4 mg/dl (1.7-2.5); PHOSPHORUS 4.1 mg/dl (2.5-4.9); POTASSIUM 5.2 mmol/L (3.5-5.1); SODIUM 142 mmol/L (135-144)
[2018-10-24] MEDS: AMLODIPINE 5 MG TAB PO ×3 (09:00→20:58)
[2018-10-24] MEDS: METOPROLOL (XL) 50 MG TAB PO ×2 (09:00→12:16)
[2018-10-24] MEDS: BETHANECHOL 10 MG TAB PO ×3 (09:03→20:58)
[2018-10-24] MEDS: POLYETHYLENE GLYCOL 17 GM PACKET PO (09:03)
[2018-10-24] MEDS: FINASTERIDE 5 MG TAB PO (09:03)
[2018-10-24] MEDS: ASPIRIN (EC) 81 MG TAB PO (09:03)
[2018-10-24] MEDS: CLOPIDOGREL 75 MG TAB PO (09:03)
[2018-10-24] MEDS: DOCUSATE SODIUM 100 MG CAP PO ×2 (09:03→20:58)
[2018-10-24] MEDS: SENNA TAB PO (09:03)
[2018-10-24] MEDS: TAMSULOSIN (SR) 0.4 MG CAP PO (20:58)
[2018-10-24] MEDS: ATORVASTATIN 80 MG TAB PO (20:58)
[2018-10-25 09:09] LABS: ANION GAP 9 (5-13); BLOOD UREA NITROGEN 38 mg/dl (7-20); CARBON DIOXIDE 31 mmol/L (21-31); CHLORIDE 100 mmol/L (97-110); GLUCOSE 107 mg/dl (70-220); MAGNESIUM 2.6 mg/dl (1.7-2.5); PHOSPHORUS 3.8 mg/dl (2.5-4.9); POTASSIUM 4.7 mmol/L (3.5-5.1); SODIUM 140 mmol/L (135-144)
[2018-10-25] MEDS: METOPROLOL (XL) 50 MG TAB PO (09:10)
[2018-10-25] MEDS: ASPIRIN (EC) 81 MG TAB PO (09:10)
[2018-10-25] MEDS: BETHANECHOL 10 MG TAB PO ×3 (09:10→20:58)
[2018-10-25] MEDS: FINASTERIDE 5 MG TAB PO (09:10)
[2018-10-25] MEDS: DOCUSATE SODIUM 100 MG CAP PO ×2 (09:10→20:58)
[2018-10-25] MEDS: CLOPIDOGREL 75 MG TAB PO (09:10)
[2018-10-25] MEDS: SENNA TAB PO (09:10)
[2018-10-25] MEDS: AMLODIPINE 5 MG TAB PO ×2 (09:10→20:58)
[2018-10-25] MEDS: POLYETHYLENE GLYCOL 17 GM PACKET PO (09:11)
[2018-10-25] MEDS: LACTATED RINGER'S 500 ML IV (15:53)
[2018-10-25] MEDS: CEFEPIME 1GM/50 ML (PMX) 50 ML IVPB ×2 (17:24→20:58)
[2018-10-25] MEDS: TAMSULOSIN (SR) 0.4 MG CAP PO (20:58)
[2018-10-25] MEDS: ATORVASTATIN 80 MG TAB PO (20:58)
[2018-10-26 07:30] LABS: ALANINE AMINOTRANSFERASE 16 IU/L (13-69); ALBUMIN/GLOBULIN RATIO 1.14; ALKALINE PHOSPHATASE 80 IU/L (42-121); ANION GAP 10 (5-13); ASPARTATE AMINO TRANSFERASE 24 IU/L (15-46); BILIRUBIN,INDIRECT 0.6 mg/dl (0-1.1); BILIRUBIN,TOTAL 0.6 mg/dl (0.2-1.3); BLOOD UREA NITROGEN 35 mg/dl (7-20); CALCIUM 9.1 mg/dl (8.4-10.2); CARBON DIOXIDE 27 mmol/L (21-31); CHLORIDE 105 mmol/L (97-110); CREATININE 1.34 mg/dl (0.61-1.24); GLUCOSE 108 mg/dl (70-220); POTASSIUM 5.2 mmol/L (3.5-5.1); SODIUM 142 mmol/L (135-144); TOTAL PROTEIN 7.5 g/dl (6.1-8.1)
[2018-10-26] MEDS: DOCUSATE SODIUM 100 MG CAP PO ×2 (08:47→21:00)
[2018-10-26] MEDS: POLYETHYLENE GLYCOL 17 GM PACKET PO (08:48)
[2018-10-26] MEDS: AMLODIPINE 5 MG TAB PO ×2 (08:48→20:05)
[2018-10-26] MEDS: ASPIRIN (EC) 81 MG TAB PO (08:48)
[2018-10-26] MEDS: CLOPIDOGREL 75 MG TAB PO (08:48)
[2018-10-26] MEDS: SENNA TAB PO (08:49)
[2018-10-26] MEDS: FINASTERIDE 5 MG TAB PO (08:49)
[2018-10-26] MEDS: METOPROLOL (XL) 50 MG TAB PO (08:49)
[2018-10-26] MEDS: BETHANECHOL 10 MG TAB PO ×3 (08:49→20:05)
[2018-10-26] MEDS: CEFEPIME 1GM/50 ML (PMX) 50 ML IVPB ×2 (08:52→20:06)
[2018-10-26] MEDS: ATORVASTATIN 80 MG TAB PO (20:05)
[2018-10-26] MEDS: TAMSULOSIN (SR) 0.4 MG CAP PO (21:28)
[2018-10-26] MEDS: ACETAMINOPHEN 325 MG TAB PO (23:52)
[2018-10-27] MEDS: CEFEPIME 1GM/50 ML (PMX) 50 ML IVPB ×2 (08:28→20:28)
[2018-10-27] MEDS: SENNA TAB PO (08:29)
[2018-10-27] MEDS: DOCUSATE SODIUM 100 MG CAP PO ×2 (08:29→20:30)
[2018-10-27] MEDS: POLYETHYLENE GLYCOL 17 GM PACKET PO (08:29)
[2018-10-27] MEDS: FINASTERIDE 5 MG TAB PO (08:29)
[2018-10-27] MEDS: CLOPIDOGREL 75 MG TAB PO (08:29)
[2018-10-27] MEDS: METOPROLOL (XL) 50 MG TAB PO ×2 (08:29→09:00)
[2018-10-27] MEDS: BETHANECHOL 10 MG TAB PO ×3 (08:29→20:30)
[2018-10-27] MEDS: ASPIRIN (EC) 81 MG TAB PO (08:29)
[2018-10-27] MEDS: AMLODIPINE 5 MG TAB PO (08:30)
[2018-10-27] MEDS: LOSARTAN 25 MG TAB NGT (08:32)
[2018-10-27] MEDS: SOD CHLORIDE 0.9% 500 ML IV (12:16)
[2018-10-27] MEDS: ATORVASTATIN 80 MG TAB PO (20:30)
[2018-10-27] MEDS: TAMSULOSIN (SR) 0.4 MG CAP PO (20:30)
[2018-10-28 08:52] LABS: ANION GAP 10 (5-13); BLOOD UREA NITROGEN 32 mg/dl (7-20); CALCIUM 9.3 mg/dl (8.4-10.2); CARBON DIOXIDE 28 mmol/L (21-31); CHLORIDE 103 mmol/L (97-110); CREATININE 1.25 mg/dl (0.61-1.24); GLUCOSE 120 mg/dl (70-220); MAGNESIUM 2.4 mg/dl (1.7-2.5); PHOSPHORUS 3.5 mg/dl (2.5-4.9); POTASSIUM 4.8 mmol/L (3.5-5.1); SODIUM 141 mmol/L (135-144)
[2018-10-28] MEDS: CEFEPIME 1GM/50 ML (PMX) 50 ML IVPB ×2 (08:57→20:41)
[2018-10-28] MEDS: FINASTERIDE 5 MG TAB PO (08:58)
[2018-10-28] MEDS: DOCUSATE SODIUM 100 MG CAP PO ×2 (08:58→20:41)
[2018-10-28] MEDS: ASPIRIN (EC) 81 MG TAB PO (08:58)
[2018-10-28] MEDS: AMLODIPINE 5 MG TAB PO (08:58)
[2018-10-28] MEDS: POLYETHYLENE GLYCOL 17 GM PACKET PO (08:58)
[2018-10-28] MEDS: SENNA TAB PO (08:58)
[2018-10-28] MEDS: LOSARTAN 25 MG TAB NGT (08:58)
[2018-10-28] MEDS: CLOPIDOGREL 75 MG TAB PO (08:58)
[2018-10-28] MEDS: METOPROLOL (XL) 25 MG TAB PO (08:59)
[2018-10-28] MEDS: BETHANECHOL 10 MG TAB PO ×3 (08:59→20:42)
[2018-10-28] MEDS: ATORVASTATIN 80 MG TAB PO (20:42)
[2018-10-28] MEDS: TAMSULOSIN (SR) 0.4 MG CAP PO (20:42)
[2018-10-29] MEDS: CEFEPIME 1GM/50 ML (PMX) 50 ML IVPB ×2 (09:17→21:41)
[2018-10-29] MEDS: ASPIRIN (EC) 81 MG TAB PO (09:21)
[2018-10-29] MEDS: FINASTERIDE 5 MG TAB PO (09:21)
[2018-10-29] MEDS: BETHANECHOL 10 MG TAB PO ×3 (09:21→21:40)
[2018-10-29] MEDS: AMLODIPINE 5 MG TAB PO (09:21)
[2018-10-29] MEDS: SENNA TAB PO (09:21)
[2018-10-29] MEDS: CLOPIDOGREL 75 MG TAB PO (09:21)
[2018-10-29] MEDS: DOCUSATE SODIUM 100 MG CAP PO ×2 (09:21→21:41)
[2018-10-29] MEDS: METOPROLOL (XL) 25 MG TAB PO (09:22)
[2018-10-29] MEDS: POLYETHYLENE GLYCOL 17 GM PACKET PO (09:22)
[2018-10-29] MEDS: LOSARTAN 25 MG TAB NGT (09:22)
[2018-10-29] MEDS: SOD CHLORIDE 0.9% 500 ML IV (12:54)
[2018-10-29] MEDS: ATORVASTATIN 80 MG TAB PO (21:40)
[2018-10-29] MEDS: TAMSULOSIN (SR) 0.4 MG CAP PO (21:41)
[2018-10-29] MEDS: ZOLPIDEM 5 MG TAB PO (23:18)
[2018-10-30] MEDS: LOSARTAN 25 MG TAB NGT (08:23)
[2018-10-30] MEDS: AMLODIPINE 5 MG TAB PO (08:23)
[2018-10-30] MEDS: FINASTERIDE 5 MG TAB PO (08:23)
[2018-10-30] MEDS: ASPIRIN (EC) 81 MG TAB PO (08:23)
[2018-10-30] MEDS: BETHANECHOL 10 MG TAB PO ×3 (08:23→21:26)
[2018-10-30] MEDS: METOPROLOL (XL) 25 MG TAB PO (08:24)
[2018-10-30] MEDS: CLOPIDOGREL 75 MG TAB PO (08:25)
[2018-10-30] MEDS: HYDROCODONE/APAP (5/325) TAB PO (08:25)
[2018-10-30] MEDS: DOCUSATE SODIUM 100 MG CAP PO ×2 (08:25→21:27)
[2018-10-30] MEDS: CEFEPIME 1GM/50 ML (PMX) 50 ML IVPB ×2 (08:25→21:27)
[2018-10-30] MEDS: SENNA TAB PO (09:00)
[2018-10-30] MEDS: POLYETHYLENE GLYCOL 17 GM PACKET PO (09:00)
[2018-10-30] MEDS: PAROXETINE 10 MG TAB PO (15:01)
[2018-10-30] MEDS: TAMSULOSIN (SR) 0.4 MG CAP PO (21:26)
[2018-10-30] MEDS: ATORVASTATIN 80 MG TAB PO (21:27)
[2018-10-31] MEDS: CEFEPIME 1GM/50 ML (PMX) 50 ML IVPB ×2 (08:15→20:36)
[2018-10-31] MEDS: CLOPIDOGREL 75 MG TAB PO (08:42)
[2018-10-31] MEDS: BETHANECHOL 10 MG TAB PO ×3 (08:42→20:24)
[2018-10-31] MEDS: FINASTERIDE 5 MG TAB PO (08:43)
[2018-10-31] MEDS: ASPIRIN (EC) 81 MG TAB PO (08:43)
[2018-10-31] MEDS: METOPROLOL (XL) 25 MG TAB PO (08:47)
[2018-10-31] MEDS: DOCUSATE SODIUM 100 MG CAP PO ×2 (08:48→20:26)
[2018-10-31] MEDS: AMLODIPINE 5 MG TAB PO (08:48)
[2018-10-31] MEDS: SENNA TAB PO (08:48)
[2018-10-31] MEDS: POLYETHYLENE GLYCOL 17 GM PACKET PO (08:48)
[2018-10-31] MEDS: LOSARTAN 25 MG TAB NGT (08:48)
[2018-10-31] MEDS: PAROXETINE 10 MG TAB PO (08:50)
[2018-10-31] MEDS: TAMSULOSIN (SR) 0.4 MG CAP PO (20:26)
[2018-10-31] MEDS: ATORVASTATIN 80 MG TAB PO (20:26)
[2018-10-31] MEDS: ZOLPIDEM 5 MG TAB PO (20:26)
[2018-11-01] MEDS: PAROXETINE 10 MG TAB PO (08:32)
[2018-11-01] MEDS: CLOPIDOGREL 75 MG TAB PO (08:32)
[2018-11-01] MEDS: FINASTERIDE 5 MG TAB PO (08:32)
[2018-11-01] MEDS: ASPIRIN (EC) 81 MG TAB PO (08:32)
[2018-11-01] MEDS: SENNA TAB PO (08:32)
[2018-11-01] MEDS: POLYETHYLENE GLYCOL 17 GM PACKET PO (08:32)
[2018-11-01] MEDS: BETHANECHOL 10 MG TAB PO ×3 (08:32→20:29)
[2018-11-01] MEDS: DOCUSATE SODIUM 100 MG CAP PO ×2 (08:33→20:29)
[2018-11-01] MEDS: AMLODIPINE 5 MG TAB PO (08:33)
[2018-11-01] MEDS: CEFEPIME 1GM/50 ML (PMX) 50 ML IVPB (08:34)
[2018-11-01] MEDS: METOPROLOL (XL) 25 MG TAB PO (08:34)
[2018-11-01] MEDS: LOSARTAN 25 MG TAB NGT (08:34)
[2018-11-01] MEDS: ATORVASTATIN 80 MG TAB PO (20:29)
[2018-11-01] MEDS: TAMSULOSIN (SR) 0.4 MG CAP PO (20:29)
[2018-11-01] MEDS: ZOLPIDEM 5 MG TAB PO (20:30)
[2018-11-02] MEDS: POLYETHYLENE GLYCOL 17 GM PACKET PO (08:24)
[2018-11-02] MEDS: DOCUSATE SODIUM 100 MG CAP PO ×2 (08:24→20:26)
[2018-11-02] MEDS: SENNA TAB PO ×2 (08:25→20:26)
[2018-11-02] MEDS: ASPIRIN (EC) 81 MG TAB PO (08:26)
[2018-11-02] MEDS: BETHANECHOL 10 MG TAB PO ×3 (08:26→20:23)
[2018-11-02] MEDS: FINASTERIDE 5 MG TAB PO (08:26)
[2018-11-02] MEDS: PAROXETINE 10 MG TAB PO (08:26)
[2018-11-02] MEDS: CLOPIDOGREL 75 MG TAB PO (08:26)
[2018-11-02] MEDS: LOSARTAN 25 MG TAB NGT (08:27)
[2018-11-02] MEDS: METOPROLOL (XL) 25 MG TAB PO (08:28)
[2018-11-02] MEDS: AMLODIPINE 5 MG TAB PO (08:28)
[2018-11-02] MEDS: TAMSULOSIN (SR) 0.4 MG CAP PO (20:21)
[2018-11-02] MEDS: ATORVASTATIN 80 MG TAB PO (20:21)
[2018-11-03 07:35] LABS: ANION GAP 7 (5-13); BLOOD UREA NITROGEN 27 mg/dl (7-20); CALCIUM 9.1 mg/dl (8.4-10.2); CARBON DIOXIDE 27 mmol/L (21-31); CHLORIDE 105 mmol/L (97-110); CREATININE 1.17 mg/dl (0.61-1.24); GLUCOSE 101 mg/dl (70-220); MAGNESIUM 2.3 mg/dl (1.7-2.5); PHOSPHORUS 3.4 mg/dl (2.5-4.9); POTASSIUM 4.7 mmol/L (3.5-5.1); SODIUM 139 mmol/L (135-144)
[2018-11-03] MEDS: PAROXETINE 10 MG TAB PO (08:20)
[2018-11-03] MEDS: ASPIRIN (EC) 81 MG TAB PO (08:20)
[2018-11-03] MEDS: CLOPIDOGREL 75 MG TAB PO (08:21)
[2018-11-03] MEDS: BETHANECHOL 10 MG TAB PO ×4 (08:21→20:37)
[2018-11-03] MEDS: AMLODIPINE 5 MG TAB PO (08:21)
[2018-11-03] MEDS: DOCUSATE SODIUM 100 MG CAP PO (08:21)
[2018-11-03] MEDS: FINASTERIDE 5 MG TAB PO (08:21)
[2018-11-03] MEDS: METOPROLOL (XL) 25 MG TAB PO (08:24)
[2018-11-03] MEDS: LOSARTAN 25 MG TAB NGT (08:24)
[2018-11-03] MEDS: EUCERIN 113 GM CR TOP ×2 (13:00→20:37)
[2018-11-03] MEDS: TAMSULOSIN (SR) 0.4 MG CAP PO (20:37)
[2018-11-03] MEDS: ATORVASTATIN 80 MG TAB PO (20:37)
[2018-11-03] MEDS: SENNA TAB PO (20:37)
[2018-11-04] MEDS: MAGNESIUM HYDROXIDE 30ML CUP PO (06:17)
[2018-11-04] MEDS: AMLODIPINE 5 MG TAB PO (08:19)
[2018-11-04] MEDS: BETHANECHOL 10 MG TAB PO ×3 (08:19→21:42)
[2018-11-04] MEDS: PAROXETINE 10 MG TAB PO (08:19)
[2018-11-04] MEDS: ASPIRIN (EC) 81 MG TAB PO (08:19)
[2018-11-04] MEDS: FINASTERIDE 5 MG TAB PO (08:19)
[2018-11-04] MEDS: CLOPIDOGREL 75 MG TAB PO (08:19)
[2018-11-04] MEDS: DOCUSATE SODIUM 100 MG CAP PO (08:20)
[2018-11-04] MEDS: METOPROLOL (XL) 25 MG TAB PO (08:20)
[2018-11-04] MEDS: EUCERIN 113 GM CR TOP ×2 (08:21→21:42)
[2018-11-04] MEDS ORDERED: DOCUSATE SODIUM 100 MG CAP PO (09:00)
[2018-11-04] MEDS: LACTOBACILLUS RHAMNOSUS CAP PO ×2 (12:53→21:41)
[2018-11-04] MEDS: LIDOCAINE 5% PATCH TD (14:51)
[2018-11-04] MEDS ORDERED: LOSARTAN 25 MG TAB NGT (17:00)
[2018-11-04] MEDS: SENNA TAB PO (21:00)
[2018-11-04] MEDS: ATORVASTATIN 80 MG TAB PO (21:41)
[2018-11-04] MEDS: TAMSULOSIN (SR) 0.4 MG CAP PO (21:42)
[2018-11-05 07:27] LABS: WHITE BLOOD COUNT 8.3 10^3/ul (4.8-10.8)
[2018-11-05 07:27] LABS: ADD MAN DIFF? NO; BASOPHIL # 0.1 10^3/ul (0.0-0.1); BASOPHILS % 0.7 % (0.0-2.0); EOSINOPHILS # 0.6 10^3/ul (0.0-0.5); EOSINOPHILS % 7.5 % (0.0-7.0); HEMATOCRIT 35.5 % (42.0-52.0); HEMOGLOBIN 11.7 g/dl (14.0-18.0); LYMPHOCYTES % 24.1 % (15.0-51.0); MEAN CORPUSCULAR HEMOGLOBIN 28.7 pg (29.0-33.0); MEAN PLATELET VOLUME 10.4 fl (7.4-10.4); MONOCYTE # 0.8 10^3/ul (0.3-0.9); MONOCYTES % 9.5 % (0.0-11.0); NEUTROPHIL # 4.8 10^3/ul (1.6-7.5); NEUTROPHILS % 57.8 % (39.0-77.0); PLATELET COUNT 197 10^3/UL (140-415); RED BLOOD COUNT 4.08 10^6/ul (4.70-6.10); RED CELL DISTRIBUTION WIDTH 13.3 % (11.5-14.5)
[2018-11-05 07:44] LABS: HEMOGLOBIN A1C 5.6 % (0-5.9)
[2018-11-05 07:59] LABS: ALANINE AMINOTRANSFERASE 23 IU/L (13-69); ALBUMIN 4.2 g/dl (3.3-4.9); ALBUMIN/GLOBULIN RATIO 1.23; ALKALINE PHOSPHATASE 86 IU/L (42-121); ANION GAP 11 (5-13); ASPARTATE AMINO TRANSFERASE 27 IU/L (15-46); BILIRUBIN,INDIRECT 0.7 mg/dl (0-1.1); BILIRUBIN,TOTAL 0.7 mg/dl (0.2-1.3); BLOOD UREA NITROGEN 30 mg/dl (7-20); CALCIUM 9.3 mg/dl (8.4-10.2); CARBON DIOXIDE 27 mmol/L (21-31); CHLORIDE 103 mmol/L (97-110); CHOL/HDL RATIO 2.4 RATIO; CHOLESTEROL 112 mg/dl (100-200); CREATININE 1.35 mg/dl (0.61-1.24); GLUCOSE 105 mg/dl (70-220); HDL CHOLESTEROL 46 mg/dl (31-75); LDL CHOLESTEROL,CALCULATED 52 mg/dl; MAGNESIUM 2.4 mg/dl (1.7-2.5); POTASSIUM 4.9 mmol/L (3.5-5.1); SODIUM 141 mmol/L (135-144); TOTAL PROTEIN 7.6 g/dl (6.1-8.1); TRIGLYCERIDES 69 mg/dl (0-149)
[2018-11-05 08:45] LABS: PROSTATE SPECIFIC ANTIGEN 3.1 ng/ml (0.0-4.0)
[2018-11-05] MEDS: FINASTERIDE 5 MG TAB PO (08:56)
[2018-11-05] MEDS: ASPIRIN (EC) 81 MG TAB PO (08:56)
[2018-11-05] MEDS: DOCUSATE SODIUM 100 MG CAP PO (08:56)
[2018-11-05] MEDS: CLOPIDOGREL 75 MG TAB PO (08:56)
[2018-11-05] MEDS: BETHANECHOL 10 MG TAB PO (08:56)
[2018-11-05] MEDS: PAROXETINE 10 MG TAB PO (08:56)
[2018-11-05] MEDS: LACTOBACILLUS RHAMNOSUS CAP PO ×2 (08:56→20:32)
[2018-11-05] MEDS: EUCERIN 113 GM CR TOP ×2 (08:57→21:39)
[2018-11-05] MEDS: LIDOCAINE 5% PATCH TD (08:57)
[2018-11-05] MEDS: METOPROLOL (XL) 25 MG TAB PO (09:02)
[2018-11-05] MEDS ORDERED: AMLODIPINE 5 MG TAB PO (18:00)
[2018-11-05] MEDS: TAMSULOSIN (SR) 0.4 MG CAP PO (20:31)
[2018-11-05] MEDS: ATORVASTATIN 80 MG TAB PO (20:32)
[2018-11-05] MEDS: AMLODIPINE 5 MG TAB PO (20:38)
[2018-11-05] MEDS: SENNA TAB PO (21:00)
[2018-11-06] MEDS: METOPROLOL (XL) 25 MG TAB PO (08:09)
[2018-11-06] MEDS: PAROXETINE 10 MG TAB PO (08:10)
[2018-11-06] MEDS: FINASTERIDE 5 MG TAB PO (08:10)
[2018-11-06] MEDS: ASPIRIN (EC) 81 MG TAB PO (08:10)
[2018-11-06] MEDS: CLOPIDOGREL 75 MG TAB PO (08:10)
[2018-11-06] MEDS: LACTOBACILLUS RHAMNOSUS CAP PO ×2 (08:10→21:33)
[2018-11-06] MEDS: LIDOCAINE 5% PATCH TD ×2 (08:11→17:36)
[2018-11-06] MEDS: DOCUSATE SODIUM 100 MG CAP PO (08:11)
[2018-11-06] MEDS: EUCERIN 113 GM CR TOP ×2 (09:00→21:35)
[2018-11-06] MEDS: TAMSULOSIN (SR) 0.4 MG CAP PO (21:33)
[2018-11-06] MEDS: ATORVASTATIN 80 MG TAB PO (21:33)
[2018-11-06] MEDS: SENNA TAB PO (21:34)
[2018-11-06] MEDS: AMLODIPINE 5 MG TAB PO (21:35)
[2018-11-07] MEDS: DOCUSATE SODIUM 100 MG CAP PO (08:49)
[2018-11-07] MEDS: LACTOBACILLUS RHAMNOSUS CAP PO ×2 (08:49→21:18)
[2018-11-07] MEDS: METOPROLOL (XL) 25 MG TAB PO (08:49)
[2018-11-07] MEDS: ASPIRIN (EC) 81 MG TAB PO (08:49)
[2018-11-07] MEDS: FINASTERIDE 5 MG TAB PO (08:49)
[2018-11-07] MEDS: CLOPIDOGREL 75 MG TAB PO (08:49)
[2018-11-07] MEDS: PAROXETINE 10 MG TAB PO (08:49)
[2018-11-07] MEDS: LIDOCAINE 5% PATCH TD ×2 (08:50)
[2018-11-07] MEDS: EUCERIN 113 GM CR TOP ×2 (08:50→21:23)
[2018-11-07] MEDS: AMLODIPINE 5 MG TAB PO (21:00)
[2018-11-07] MEDS: TAMSULOSIN (SR) 0.4 MG CAP PO (21:17)
[2018-11-07] MEDS: ATORVASTATIN 80 MG TAB PO (21:17)
[2018-11-07] MEDS: SENNA TAB PO (21:18)
[2018-11-08] MEDS: LIDOCAINE 5% PATCH TD ×2 (08:46→08:47)
[2018-11-08] MEDS: CLOPIDOGREL 75 MG TAB PO (08:47)
[2018-11-08] MEDS: DOCUSATE SODIUM 100 MG CAP PO (08:47)
[2018-11-08] MEDS: PAROXETINE 10 MG TAB PO (08:47)
[2018-11-08] MEDS: METOPROLOL (XL) 25 MG TAB PO (08:47)
[2018-11-08] MEDS: FINASTERIDE 5 MG TAB PO (08:47)
[2018-11-08] MEDS: LACTOBACILLUS RHAMNOSUS CAP PO ×2 (08:47→20:29)
[2018-11-08] MEDS: ASPIRIN (EC) 81 MG TAB PO (08:47)
[2018-11-08] MEDS: EUCERIN 113 GM CR TOP ×2 (08:48→20:42)
[2018-11-08] MEDS: ATORVASTATIN 80 MG TAB PO (20:29)
[2018-11-08] MEDS: TAMSULOSIN (SR) 0.4 MG CAP PO (20:29)
[2018-11-08] MEDS: SENNA TAB PO (20:29)
[2018-11-08] MEDS: AMLODIPINE 5 MG TAB PO (21:00)
[2018-11-09] MEDS: METOPROLOL (XL) 25 MG TAB PO (09:00)
[2018-11-09] MEDS: DOCUSATE SODIUM 100 MG CAP PO (09:20)
[2018-11-09] MEDS: CLOPIDOGREL 75 MG TAB PO (09:20)
[2018-11-09] MEDS: FINASTERIDE 5 MG TAB PO (09:20)
[2018-11-09] MEDS: LACTOBACILLUS RHAMNOSUS CAP PO ×2 (09:20→20:57)
[2018-11-09] MEDS: PAROXETINE 10 MG TAB PO (09:20)
[2018-11-09] MEDS: ASPIRIN (EC) 81 MG TAB PO (09:22)
[2018-11-09] MEDS: LIDOCAINE 5% PATCH TD ×2 (09:27)
[2018-11-09] MEDS: EUCERIN 113 GM CR TOP ×2 (09:28→20:59)
[2018-11-09] MEDS: CYANOCOBALAMIN 1000 MCG INJ IM (14:35)
[2018-11-09] MEDS: TESTOSTERONE CYPIONATE 200 MG/ML INJ IM (14:37)
[2018-11-09] MEDS: TAMSULOSIN (SR) 0.4 MG CAP PO (20:57)
[2018-11-09] MEDS: ATORVASTATIN 80 MG TAB PO (20:57)
[2018-11-09] MEDS: SENNA TAB PO (20:57)
[2018-11-09] MEDS: AMLODIPINE 5 MG TAB PO (20:59)
[2018-11-10 00:58] LABS: ADD UMIC NO; UR ASCORBIC ACID NEGATIVE (NEGATIVE); UR BILIRUBIN (Dip) NEGATIVE (NEGATIVE); UR BLOOD (Dip) NEGATIVE (NEGATIVE); UR CLARITY CLEAR (CLEAR); UR COLOR YELLOW (YELLOW); UR GLUCOSE (Dip) NEGATIVE (NEGATIVE); UR KETONES (Dip) NEGATIVE (NEGATIVE); UR LEUKOCYTE ESTERASE (Dip) NEGATIVE Leu/ul (NEGATIVE); UR NITRITE (Dip) NEGATIVE (NEGATIVE); UR SPECIFIC GRAVITY (Dip) 1.013 (1.003-1.030); UR TOTAL PROTEIN (Dip) NEGATIVE (NEGATIVE); UR UROBILINOGEN (Dip) NEGATIVE (NEGATIVE)
[2018-11-10] MEDS: METOPROLOL (XL) 25 MG TAB PO (09:00)
[2018-11-10] MEDS: EUCERIN 113 GM CR TOP (09:00)
[2018-11-10] MEDS: LACTOBACILLUS RHAMNOSUS CAP PO (09:20)
[2018-11-10] MEDS: PAROXETINE 10 MG TAB PO (09:20)
[2018-11-10] MEDS: FINASTERIDE 5 MG TAB PO (09:20)
[2018-11-10] MEDS: LIDOCAINE 5% PATCH TD ×2 (09:20→09:22)
[2018-11-10] MEDS: ASPIRIN (EC) 81 MG TAB PO (09:20)
[2018-11-10] MEDS: DOCUSATE SODIUM 100 MG CAP PO (09:20)
[2018-11-10] MEDS: CLOPIDOGREL 75 MG TAB PO (09:20)
== END 2018-11-10 13:30 | disposition home health service (06) | DRG 57 ==
LOC: VRC 15:30
PROVIDERS: Physical Medicine & Rehabilitation
PROC: F07Z9FZ Gait Training/Functional Ambulation Treatment using Assistive, Adaptive, Supportive or Protective Equipment (ICD-10-PCS; principal; 2018-10-20)
PROC: F07Z8FZ Transfer Training Treatment using Assistive, Adaptive, Supportive or Protective Equipment (ICD-10-PCS; 2018-10-20)
PROC: F07Z5FZ Bed Mobility Treatment using Assistive, Adaptive, Supportive or Protective Equipment (ICD-10-PCS; 2018-10-20)
PROC: F08Z2FZ Grooming/Personal Hygiene Treatment using Assistive, Adaptive, Supportive or Protective Equipment (ICD-10-PCS; 2018-10-20)
PROC: F08Z0FZ Bathing/Showering Techniques Treatment using Assistive, Adaptive, Supportive or Protective Equipment (ICD-10-PCS; 2018-10-20)
PROC: F08Z1FZ Dressing Techniques Treatment using Assistive, Adaptive, Supportive or Protective Equipment (ICD-10-PCS; 2018-10-20)
DX: I69.354 Hemiplegia and hemiparesis following cerebral infarction affecting left non-dominant side (principal); Q21.1 Atrial septal defect; I13.0 Hypertensive heart and chronic kidney disease with heart failure and stage 1 through stage 4 chronic kidney disease, or unspecified chronic kidney disease; I50.32 Chronic diastolic (congestive) heart failure; N17.9 Acute kidney failure, unspecified; N39.0 Urinary tract infection, site not specified; I65.21 Occlusion and stenosis of right carotid artery; I12.9 Hypertensive chronic kidney disease with stage 1 through stage 4 chronic kidney disease, or unspecified chronic kidney disease; I25.10 Atherosclerotic heart disease of native coronary artery without angina pectoris; E78.5 Hyperlipidemia, unspecified; F06.31 Mood disorder due to known physiological condition with depressive features; D64.9 Anemia, unspecified; E87.5 Hyperkalemia; R63.4 Abnormal weight loss; N40.1 Benign prostatic hyperplasia with lower urinary tract symptoms; R33.8 Other retention of urine; N39.43 Post-void dribbling; N18.3 Chronic kidney disease, stage 3 (moderate); B96.5 Pseudomonas (aeruginosa) (mallei) (pseudomallei) as the cause of diseases classified elsewhere; B96.1 Klebsiella pneumoniae [K. pneumoniae] as the cause of diseases classified elsewhere; I95.1 Orthostatic hypotension
CPT/HCPCS: 76775; 80048; 80053; 80061; 81001; 81003; 82043; 82306; 82607; 82652; 83036; 83735; 84100; 84153; 84154; 84155; 84300; 84443; 85025; 87081; 87086; 92610; 93971; 97110; 97112; 97116; 97150; 97163; 97167; 97530; 97535; 97542

== ENCOUNTER 2019-06-12 15:40 | Inpatient (IN) | payer MEDICARE, OTHER ==
[2019-06-12] MEDS: SODIUM CHLORIDE 0.9% 1L BAG IV* (16:49)
[2019-06-12] MEDS: CEFEPIME 2GM/50 ML (PMX) 50 ML IVPB (16:50)
[2019-06-12] MEDS: ACETAMINOPHEN 325 MG TAB PO (16:59)
[2019-06-12 17:24] LABS: ADD MAN DIFF? NO
[2019-06-12] MEDS: VANCOMYCIN 1 GM (PMX) 250 ML IVPB (17:27)
[2019-06-12 17:55] LABS: ALANINE AMINOTRANSFERASE 23 IU/L (13-69); ALKALINE PHOSPHATASE 95 IU/L (42-121); ANION GAP 11 (5-13); ASPARTATE AMINO TRANSFERASE 26 IU/L (15-46); BILIRUBIN,TOTAL 0.9 mg/dl (0.2-1.3); BLOOD UREA NITROGEN 36 mg/dl (7-20); CALCIUM 9.2 mg/dl (8.4-10.2); CARBON DIOXIDE 26 mmol/L (21-31); CHLORIDE 101 mmol/L (97-110); CREATININE 1.81 mg/dl (0.61-1.24); GLUCOSE 113 mg/dl (70-220); SODIUM 138 mmol/L (135-144)
[2019-06-12 17:56] LABS: ALBUMIN 4.3 g/dl (3.3-4.9); BILIRUBIN,INDIRECT 0.9 mg/dl (0-1.1); TOTAL PROTEIN 8.2 g/dl (6.1-8.1)
[2019-06-12 18:22] LABS: TROPONIN-I < 0.010 ng/ml (0.000-0.120)
[2019-06-12 18:39] LABS: PARTIAL THROMBOPLASTIN TIME 36.5 Sec (23.0-35.0); PT RATIO 1.2
[2019-06-12 18:49] LABS: UR CLARITY CLEAR (CLEAR); UR COLOR YELLOW (YELLOW)
[2019-06-12 18:50] LABS: UR BILIRUBIN (Dip) NEGATIVE (NEGATIVE); UR BLOOD (Dip) 1+ mg/dL (NEGATIVE); UR GLUCOSE (Dip) NEGATIVE (NEGATIVE); UR KETONES (Dip) NEGATIVE (NEGATIVE); UR NITRITE (Dip) NEGATIVE (NEGATIVE); UR SPECIFIC GRAVITY (Dip) 1.014 (1.003-1.030); UR TOTAL PROTEIN (Dip) 1+ mg/dl (NEGATIVE)
[2019-06-12 18:51] LABS: ADD UMIC YES; UR LEUKOCYTE ESTERASE (Dip) NEGATIVE Leu/ul (NEGATIVE); UR RBC 4 /HPF (0-5); UR UROBILINOGEN (Dip) NEGATIVE (NEGATIVE); UR WBC 1 /HPF (0-5)
[2019-06-12] MEDS ORDERED: ACETAMINOPHEN 325 MG TAB PO ×2 (19:00)
[2019-06-12] MEDS ORDERED: NACL 0.9% 3 ML SYG IV (19:00)
[2019-06-12] MEDS ORDERED: ONDANSETRON 4 MG INJ IV ×2 (19:00)
[2019-06-12 19:31] LABS: LACTIC ACID 0.8 mmol/L (0.5-2.0)
[2019-06-12 21:14] LABS: WHITE BLOOD COUNT 14.6 10^3/ul (4.8-10.8)
[2019-06-12 21:14] LABS: BASOPHILS % 0.2 % (0.0-2.0); EOSINOPHILS % 0.6 % (0.0-7.0); HEMATOCRIT 35.4 % (42.0-52.0); HEMOGLOBIN 11.7 g/dl (14.0-18.0); LYMPHOCYTES % 6.4 % (15.0-51.0); MEAN CORPUSCULAR HEMOGLOBIN 28.7 pg (29.0-33.0); MEAN CORPUSCULAR HGB CONC 33.1 g/dl (32.0-37.0); MEAN CORPUSCULAR VOLUME 86.8 fl (82.0-101.0); MEAN PLATELET VOLUME 10.4 fl (7.4-10.4); MONOCYTES % 6.5 % (0.0-11.0); NEUTROPHILS % 85.8 % (39.0-77.0); PLATELET COUNT 168 10^3/UL (140-415); RED BLOOD COUNT 4.08 10^6/ul (4.70-6.10); RED CELL DISTRIBUTION WIDTH 13.6 % (11.5-14.5)
[2019-06-12 21:15] LABS: EOSINOPHILS # 0.1 10^3/ul (0.0-0.5); LYMPHOCYTES # 0.9 10^3/ul (0.8-2.9); NEUTROPHIL # 12.6 10^3/ul (1.6-7.5)
[2019-06-12] MEDS: AZITHROMYCIN 500MG/NS (PMX) 250 ML IVPB (22:04)
[2019-06-12 22:11] LABS: LACTIC ACID 0.7 mmol/L (0.5-2.0)
[2019-06-12] MEDS: ATORVASTATIN 80 MG TAB PO (22:16)
[2019-06-12] MEDS: METOPROLOL (XL) 25 MG TAB PO (22:19)
[2019-06-13 06:30] LABS: ADD MAN DIFF? NO
[2019-06-13 06:38] LABS: WHITE BLOOD COUNT 13.7 10^3/ul (4.8-10.8)
[2019-06-13 06:38] LABS: BASOPHILS % 0.2 % (0.0-2.0); EOSINOPHILS # 0.2 10^3/ul (0.0-0.5); EOSINOPHILS % 1.3 % (0.0-7.0); HEMATOCRIT 32.1 % (42.0-52.0); HEMOGLOBIN 10.6 g/dl (14.0-18.0); LYMPHOCYTES # 1.2 10^3/ul (0.8-2.9); LYMPHOCYTES % 8.7 % (15.0-51.0); MEAN CORPUSCULAR HEMOGLOBIN 28.9 pg (29.0-33.0); MEAN CORPUSCULAR VOLUME 87.5 fl (82.0-101.0); MEAN PLATELET VOLUME 10.4 fl (7.4-10.4); MONOCYTE # 1.2 10^3/ul (0.3-0.9); MONOCYTES % 8.5 % (0.0-11.0); NEUTROPHIL # 11.1 10^3/ul (1.6-7.5); NEUTROPHILS % 80.7 % (39.0-77.0); PLATELET COUNT 148 10^3/UL (140-415); RED BLOOD COUNT 3.67 10^6/ul (4.70-6.10); RED CELL DISTRIBUTION WIDTH 13.7 % (11.5-14.5)
[2019-06-13 06:56] LABS: HEMOGLOBIN A1C 5.4 % (0-5.9)
[2019-06-13 06:58] LABS: ALANINE AMINOTRANSFERASE 23 IU/L (13-69); ALBUMIN 3.5 g/dl (3.3-4.9); ALBUMIN/GLOBULIN RATIO 1.06; ALKALINE PHOSPHATASE 70 IU/L (42-121); ANION GAP 7 (5-13); ASPARTATE AMINO TRANSFERASE 20 IU/L (15-46); BILIRUBIN,INDIRECT 1.3 mg/dl (0-1.1); BILIRUBIN,TOTAL 1.3 mg/dl (0.2-1.3); BLOOD UREA NITROGEN 27 mg/dl (7-20); CALCIUM 8.7 mg/dl (8.4-10.2); CARBON DIOXIDE 25 mmol/L (21-31); CHLORIDE 108 mmol/L (97-110); CREATININE 1.53 mg/dl (0.61-1.24); GLUCOSE 102 mg/dl (70-220); MAGNESIUM 2.1 mg/dl (1.7-2.5); PHOSPHORUS 3.6 mg/dl (2.5-4.9); POTASSIUM 4.2 mmol/L (3.5-5.1); SODIUM 140 mmol/L (135-144); TOTAL PROTEIN 6.8 g/dl (6.1-8.1)
[2019-06-13] MEDS: TAMSULOSIN (SR) 0.4 MG CAP PO (08:52)
[2019-06-13] MEDS: FINASTERIDE 5 MG TAB PO (08:52)
[2019-06-13] MEDS: NIFEdipine (XL) 60 MG TAB PO (08:52)
[2019-06-13] MEDS: ASPIRIN (EC) 81 MG TAB PO (08:52)
[2019-06-13] MEDS ORDERED: METOPROLOL (XL) 25 MG TAB PO (09:00)
[2019-06-13] MEDS: CEFTRIAXONE 1 GM/50 ML (PMX) 50 ML IVPB (14:44)
[2019-06-13] MEDS: AZITHROMYCIN 500MG/NS (PMX) 250 ML IVPB (21:13)
[2019-06-13] MEDS: ATORVASTATIN 80 MG TAB PO (21:13)
[2019-06-13] MEDS: GUAIFENESIN 20 MG/ML 5ML CUP PO (21:13)
[2019-06-13] MEDS: METOPROLOL (XL) 25 MG TAB PO (21:17)
[2019-06-14] MEDS: ZOLPIDEM 5 MG TAB PO (00:13)
[2019-06-14] MEDS: NIFEdipine (XL) 60 MG TAB PO (09:01)
[2019-06-14] MEDS: TAMSULOSIN (SR) 0.4 MG CAP PO (09:01)
[2019-06-14] MEDS: FINASTERIDE 5 MG TAB PO (09:01)
[2019-06-14] MEDS: ASPIRIN (EC) 81 MG TAB PO (09:01)
[2019-06-14] MEDS: AZITHROMYCIN 250 MG TAB PO (14:53)
[2019-06-14] MEDS: ATORVASTATIN 80 MG TAB PO (21:44)
[2019-06-14] MEDS: METOPROLOL (XL) 25 MG TAB PO (21:45)
[2019-06-14] MEDS: GUAIFENESIN 20 MG/ML 5ML CUP PO (21:47)
[2019-06-15 06:01] LABS: ADD MAN DIFF? NO
[2019-06-15 06:08] LABS: BASOPHILS % 0.4 % (0.0-2.0); EOSINOPHILS # 0.6 10^3/ul (0.0-0.5); EOSINOPHILS % 5.1 % (0.0-7.0); HEMATOCRIT 36.1 % (42.0-52.0); HEMOGLOBIN 11.7 g/dl (14.0-18.0); LYMPHOCYTES # 1.5 10^3/ul (0.8-2.9); LYMPHOCYTES % 13.7 % (15.0-51.0); MEAN CORPUSCULAR HEMOGLOBIN 28.3 pg (29.0-33.0); MEAN CORPUSCULAR HGB CONC 32.4 g/dl (32.0-37.0); MEAN CORPUSCULAR VOLUME 87.4 fl (82.0-101.0); MEAN PLATELET VOLUME 10.1 fl (7.4-10.4); MONOCYTE # 0.9 10^3/ul (0.3-0.9); MONOCYTES % 8.1 % (0.0-11.0); NEUTROPHIL # 7.9 10^3/ul (1.6-7.5); NEUTROPHILS % 72.1 % (39.0-77.0); PLATELET COUNT 211 10^3/UL (140-415); RED BLOOD COUNT 4.13 10^6/ul (4.70-6.10); RED CELL DISTRIBUTION WIDTH 13.2 % (11.5-14.5)
[2019-06-15 06:08] LABS: WHITE BLOOD COUNT 10.9 10^3/ul (4.8-10.8)
[2019-06-15 06:49] LABS: ANION GAP 11 (5-13); BLOOD UREA NITROGEN 23 mg/dl (7-20); CALCIUM 8.9 mg/dl (8.4-10.2); CARBON DIOXIDE 23 mmol/L (21-31); CHLORIDE 106 mmol/L (97-110); CREATININE 1.42 mg/dl (0.61-1.24); GLUCOSE 114 mg/dl (70-220); MAGNESIUM 2.1 mg/dl (1.7-2.5); PHOSPHORUS 3.6 mg/dl (2.5-4.9); POTASSIUM 4.5 mmol/L (3.5-5.1); SODIUM 140 mmol/L (135-144)
[2019-06-15] MEDS: AZITHROMYCIN 250 MG TAB PO (09:40)
[2019-06-15] MEDS: FINASTERIDE 5 MG TAB PO (09:40)
[2019-06-15] MEDS: TAMSULOSIN (SR) 0.4 MG CAP PO (09:41)
[2019-06-15] MEDS: NIFEdipine (XL) 60 MG TAB PO (09:42)
[2019-06-15] MEDS: ASPIRIN (EC) 81 MG TAB PO (09:42)
[2019-06-15] MEDS: SOD CHLORIDE 0.45% 1,000 ML IV (11:58)
[2019-06-15] MEDS: METOPROLOL (XL) 25 MG TAB PO (20:48)
[2019-06-15] MEDS: ATORVASTATIN 80 MG TAB PO (20:48)
[2019-06-15] MEDS: HEPARIN 5,000 UNIT/1 ML VIAL SC (20:49)
[2019-06-15] MEDS: GUAIFENESIN 20 MG/ML 5ML CUP PO (20:54)
[2019-06-16] MEDS: SOD CHLORIDE 0.45% 1,000 ML IV ×2 (02:19→13:38)
[2019-06-16] MEDS: LEVOFLOXACIN 500 MG TAB PO (05:34)
[2019-06-16 07:24] LABS: ADD MAN DIFF? NO
[2019-06-16 07:32] LABS: BASOPHIL # 0.1 10^3/ul (0.0-0.1); BASOPHILS % 0.7 % (0.0-2.0); EOSINOPHILS # 0.6 10^3/ul (0.0-0.5); EOSINOPHILS % 7.1 % (0.0-7.0); HEMATOCRIT 35.5 % (42.0-52.0); HEMOGLOBIN 11.5 g/dl (14.0-18.0); LYMPHOCYTES # 1.3 10^3/ul (0.8-2.9); LYMPHOCYTES % 16.5 % (15.0-51.0); MEAN CORPUSCULAR HEMOGLOBIN 28.3 pg (29.0-33.0); MEAN CORPUSCULAR HGB CONC 32.4 g/dl (32.0-37.0); MEAN CORPUSCULAR VOLUME 87.4 fl (82.0-101.0); MEAN PLATELET VOLUME 10.2 fl (7.4-10.4); MONOCYTE # 0.7 10^3/ul (0.3-0.9); MONOCYTES % 8.6 % (0.0-11.0); NEUTROPHIL # 5.4 10^3/ul (1.6-7.5); NEUTROPHILS % 66.6 % (39.0-77.0); PLATELET COUNT 225 10^3/UL (140-415); RED BLOOD COUNT 4.06 10^6/ul (4.70-6.10); RED CELL DISTRIBUTION WIDTH 13.2 % (11.5-14.5)
[2019-06-16 07:32] LABS: WHITE BLOOD COUNT 8.1 10^3/ul (4.8-10.8)
[2019-06-16 07:54] LABS: ANION GAP 9 (5-13); BLOOD UREA NITROGEN 20 mg/dl (7-20); CARBON DIOXIDE 27 mmol/L (21-31); CHLORIDE 106 mmol/L (97-110); CREATININE 1.35 mg/dl (0.61-1.24); GLUCOSE 110 mg/dl (70-220); POTASSIUM 4.6 mmol/L (3.5-5.1); SODIUM 142 mmol/L (135-144)
[2019-06-16] MEDS: ASPIRIN (EC) 81 MG TAB PO (09:32)
[2019-06-16] MEDS: FINASTERIDE 5 MG TAB PO (09:32)
[2019-06-16] MEDS: TAMSULOSIN (SR) 0.4 MG CAP PO (09:32)
[2019-06-16] MEDS: NIFEdipine (XL) 60 MG TAB PO (09:33)
[2019-06-16] MEDS: HEPARIN 5,000 UNIT/1 ML VIAL SC (09:37)
[2019-06-16] MEDS: GUAIFENESIN 20 MG/ML 5ML CUP PO (11:25)
== END 2019-06-16 15:00 | disposition home health service (06) | DRG 194 ==
LOC: E/R 15:40 → PP2 18:49
DX: J15.7 Pneumonia due to Mycoplasma pneumoniae (principal); N17.9 Acute kidney failure, unspecified; E86.0 Dehydration; N40.0 Benign prostatic hyperplasia without lower urinary tract symptoms; I10 Essential (primary) hypertension; I25.10 Atherosclerotic heart disease of native coronary artery without angina pectoris; Z79.82 Long term (current) use of aspirin; Z86.73 Personal history of transient ischemic attack (TIA), and cerebral infarction without residual deficits
CPT/HCPCS: 36415; 71045; 76705; 80048; 80053; 81001; 83036; 83605; 83735; 84100; 84443; 84484; 85025; 85610; 85730; 87040-91; 87045; 87086; 87400; 93005; 96374; 96375; 97110; 97162; 97530; 99285-25

== ENCOUNTER 2019-08-10 11:16 | Emergency (ER) | payer MEDICARE, OTHER ==
[2019-08-10] MEDS: SOD CHLORIDE 0.9% 1,000 ML IV (11:37)
[2019-08-10 11:40] LABS: ADD MAN DIFF? NO
[2019-08-10 11:42] LABS: WHITE BLOOD COUNT 6.6 10^3/ul (4.8-10.8)
[2019-08-10 11:43] LABS: BASOPHILS % 0.5 % (0.0-2.0); EOSINOPHILS # 0.2 10^3/ul (0.0-0.5); EOSINOPHILS % 3.6 % (0.0-7.0); HEMATOCRIT 39.6 % (42.0-52.0); HEMOGLOBIN 12.8 g/dl (14.0-18.0); LYMPHOCYTES # 1.1 10^3/ul (0.8-2.9); LYMPHOCYTES % 16.2 % (15.0-51.0); MEAN CORPUSCULAR HEMOGLOBIN 28.6 pg (29.0-33.0); MEAN CORPUSCULAR HGB CONC 32.3 g/dl (32.0-37.0); MEAN CORPUSCULAR VOLUME 88.4 fl (82.0-101.0); MEAN PLATELET VOLUME 10.1 fl (7.4-10.4); MONOCYTE # 0.7 10^3/ul (0.3-0.9); MONOCYTES % 10.2 % (0.0-11.0); NEUTROPHIL # 4.6 10^3/ul (1.6-7.5); NEUTROPHILS % 69.3 % (39.0-77.0); PLATELET COUNT 143 10^3/UL (140-415); RED BLOOD COUNT 4.48 10^6/ul (4.70-6.10); RED CELL DISTRIBUTION WIDTH 13.9 % (11.5-14.5)
[2019-08-10 12:04] LABS: ANION GAP 9 (5-13); BLOOD UREA NITROGEN 29 mg/dl (7-20); CALCIUM 9.5 mg/dl (8.4-10.2); CARBON DIOXIDE 26 mmol/L (21-31); CHLORIDE 103 mmol/L (97-110); CREATININE 1.65 mg/dl (0.61-1.24); GLUCOSE 171 mg/dl (70-220); POTASSIUM 4.5 mmol/L (3.5-5.1); SODIUM 138 mmol/L (135-144)
[2019-08-10 12:15] LABS: TROPONIN-I < 0.012 ng/ml (0.000-0.120)
== END 2019-08-10 13:00 | disposition home or self-care (01) ==
LOC: E/R 11:16
DX: R55 Syncope and collapse (principal); I10 Essential (primary) hypertension; I25.10 Atherosclerotic heart disease of native coronary artery without angina pectoris; Z86.73 Personal history of transient ischemic attack (TIA), and cerebral infarction without residual deficits; Z79.82 Long term (current) use of aspirin
CPT/HCPCS: 36415; 80048; 82962; 84484; 85025; 93005; 99284-25